=== PATIENT | female | born 1970 | race Caucasian/White ===

== ENCOUNTER → 2024-04-27 19:06 | Outpatient (REF) | payer BC, SELFPAY | LOC: WDC 19:06 | PROVIDERS: ATTENDING PHYSICIAN Physician Assistant Medical | DX: Z12.31 Encounter for screening mammogram for malignant neoplasm of breast (principal) | CPT/HCPCS: 77063; 77067 ==

== ENCOUNTER → 2024-06-07 16:45 | Outpatient (REF) | payer BC, SELFPAY | LOC: RAD 16:45 | PROVIDERS: ATTENDING PHYSICIAN Physician Assistant Medical | DX: M25.512 Pain in left shoulder (principal) | CPT/HCPCS: 73030 ==